=== PATIENT | female | born 1960 | race Two or more races ===

== ENCOUNTER 2017-05-26 10:32 | Emergency (ER) | payer OTHER ==
[2017-05-26] MEDS ORDERED: ONDANSETRON 4 MG/2 ML VIAL IVPB ONE (10:52)
[2017-05-26] MEDS ORDERED: SODIUM CHLORIDE 1,000 ML IV ONE (10:52)
--- NOTE | 2017-05-26 11:07 | PDOC ---
History of Present Illness - General History Source: Patient Exam Limitations: No Limitations - History of Present Illness Initial Comments: 05/26/17 14:28 Patient is a 57 year old female with a pmhx of ovarian ca( treated with hysterectomy and chemo in remission for 27 years) and migraines who presents to the ED s/p episode of vertigo. Patient states that she was sitting at the computer as the room spinning, lightheadedness, diaphoresis, nausea came on with a sudden onset that lasted for 20 minutes and resolved gradually when she lied down. She has felt fine afterwards and has not been dizzy since. Patient reports having intermittent episodes dizzy spells, lightheadedness, and migranes for over the past 6 weeks. She denies any alleviating or exacerbating factors. She denies no fall, head trauma or LOC. She notes that she just waited for the episode to pass on its own while lying down. She reports slight dizziness and nausea while in the ED. She states that she has hx of difficulty sleeping. She denies any chest pain, SOB, palpitations or headache. She denies any double vision, blurry vision, slurring or dysarthria or hearing problems. She denies any recent travel or sick contact. <Amisha Murillo - Last Filed: 05/26/17 14:28> <Pedor Guzman - Last Filed: 05/26/17 15:10> - General Chief Complaint: Lightheaded Stated Complaint: DIZZINESS Time Seen by Provider: 05/26/17 10:43 Past History <Amisha Murillo - Last Filed: 05/26/17 14:28> - Psycho/Social/Smoking Cessation Hx Suicidal Ideation: No Smoking History: Never smoked Hx Alcohol Use: No Drug/Substance Use Hx: No <Pedro Guzman - Last Filed: 05/26/17 15:10> - Past Medical History Allergies/Adverse Reactions: Allergies Allergy/AdvReac Type Severity Reaction Status Date / Time codeine AdvReac Severe Nausea Verified 05/26/17 10:43 Sulfa (Sulfonamide AdvReac Severe Nausea Verified 05/26/17 10:43 Antibiotics) Home Medications: Ambulatory Orders Meclizine HCl [Antivert -] 25 mg PO TID PRN #20 tablet 05/26/17 Ondansetron [Zofran -] 4 mg PO TID PRN #14 tablet 05/26/17 Review of Systems - Review of Systems Able to Perform ROS?: Yes Comments:: 05/26/17 14:29 CONSTITUTIONAL: Reported: diaphoresis. No reported: Fever, Chills, Generalized Weakness, Malaise, Loss of Appetite HEENT: No reported: Rhinorrhea, Nasal Congestion, Throat Pain, Throat Swelling, Difficulty Swallowing, Mouth Swelling, Ear Pain, Eye Pain, Visual Changes CARDIOVASCULAR: No reported: Chest Pain, Syncope, Palpitations, Irregular Heart Rate, Lightheadedness, Peripheral Edema RESPIRATORY: No reported: Cough, Shortness of Breath, SOB with Exertion, Orthopnea, Wheezing , Stridor, Hemoptysis GASTROINTESTINAL: No reported: Abdominal pain, Abdominal Distension, Nausea, Vomiting, Diarrhea, Constipation, Melena, Hematochezia GENITOURINARY: No reported: Dysuria, Frequency, Urgency, Hesitancy, Flank Pain, Genital Pain MUSCULOSKELETAL: No reported: Myalgia, Arthralgia, Joint Swelling, Back pain, Neck Pain SKIN: No reported: Rash, Itching, Pallor HEMEATOLOGIC/IMMUNOLOGIC: No reported: Easy Bleeding, Easy Bruising, Lymphadenopathy, Frequent infections ENDOCRINE: No reported: Unexplained Weight Gain, Unexplained Weight Loss, Heat Intolerance , Cold Intolerance NEUROLOGIC: Reported: vertigo, lightheadedness. No reported: Headache, Focal Weakness, Paresthesias, Unsteady Gait, Seizure, Mental Status Changes, Incontinence PSYCHIATRIC: No reported: Anxiety, Depression <Amisha Murillo - Last Filed: 05/26/17 14:28> *Physical Exam - Vital Signs Last Vital Signs Temp Pulse Resp BP Pulse Ox 97.1 F L 55 L 18 155/80 100 05/26/17 10:43 05/26/17 13:29 05/26/17 13:29 05/26/17 13:29 05/26/17 13:29 - Physical Exam Comments: 05/26/17 14:29 GENERAL: The patient is awake, alert, and fully oriented, Nontoxic - in no acute distress. HEAD: Normocephalic, atraumatic. EYES: extraocular movements intact, sclera anicteric, conjunctiva clear.No nystagumus noted ENT: Normal voice, Moist mucous membranes. TMs normal b/l NECK: Normal range of motion, supple LUNGS: Breath sounds equal, clear to auscultation bilaterally. No wheezes, no rhonchi, no rales. HEART: Regular rate and rhythm, without murmur, rub or gallop. ABDOMEN: Soft, nontender, normoactive bowel sounds. No guarding, no rebound.No CVA tenderness EXTREMITIES: Normal range of motion, no edema. No clubbing or cyanosis. No cords , erythema, or tenderness. NEUROLOGICAL: Mental status: The patient is oriented x3. Cranial nerves: Cranial nerves II through XII are intact Motor: The upper extremities are 5 over 5 in all muscle groups. The lower extremities are 5 over 5 in all muscle groups. No pronator drift. Sensation: Sensation is intact to light touch throughout. Neg romberg Cerebellar: [id number]-[id number]-[id number] is normal in both upper extremities. Heel-knee- forrester is normal in both lower extremities. Reflexes: 2+ and symmetric in the upper and lower extremities. Gait: Normal. Heel and toe walking are normal. Tandem gait is normal. PSYCH: Normal mood, normal affect. SKIN: Warm, Dry, normal turgor <Amisha Murillo - Last Filed: 05/26/17 14:28> - Vital Signs Last Vital Signs Temp Pulse Resp BP Pulse Ox 97.1 F L 53 L 18 149/86 100 05/26/17 10:43 05/26/17 10:43 05/26/17 10:43 05/26/17 10:43 05/26/17 10:43 <Pedro Guzman - Last Filed: 05/26/17 15:10> Heart Score/ECG Review - ECG Impressions Comment:: 05/26/17 15:10 Twelve-lead EKG was performed and reviewed by me. There is normal sinus rhythm with a heart rate of 47 Left anterior fascicular block There are no ST or T wave abnormalities. Impression: Sinus bradycardia <Pedro Guzman - Last Filed: 05/26/17 15:10> ED Treatment Course - LABORATORY CBC & Chemistry Diagram: 05/26/17 11:11 05/26/17 11:11 - ADDITIONAL ORDERS Additional order review: Laboratory Results 05/26/17 05/26/17 05/26/17 11:17 11:11 11:11 Sodium 142 Potassium 4.2 Chloride 104 Carbon Dioxide 33 H Anion Gap 5 L BUN 20 H Creatinine 0.6 Creat Clearance w eGFR > 60 Random Glucose 99 Calcium 10.0 Magnesium 2.0 Total Bilirubin 0.5 AST 27 ALT 30 Alkaline Phosphatase 55 Total Protein 7.0 Albumin 3.7 Urine Color Straw Urine Appearance Clear Urine pH 8.0 Urine Protein Negative Urine Glucose (UA) Negative Urine Ketones Negative Urine Blood Negative Urine Nitrite Negative Urine Bilirubin Negative Urine Urobilinogen Negative Ur Leukocyte Esterase Negative 05/26/17 11:11 RBC 4.43 MCV 87.7 MCHC 33.8 RDW 14.0 MPV 8.2 Neutrophils % 57.4 Lymphocytes % 32.4 Monocytes % 5.4 Eosinophils % 4.0 Basophils % 0.8 - Medications Given in the ED: ED Medications Discontinued Medications Generic Name Dose Route Start Last Admin Trade Name Freq PRN Reason Stop Dose Admin Sodium Chloride 1,000 mls @ 1,000 mls/hr 05/26/17 10:52 05/26/17 11:16 Normal Saline - IV 05/26/17 11:51 1,000 mls/hr .Q1H ONE Administration Ondansetron HCl 4 mg 05/26/17 10:52 05/26/17 11:16 Zofran Injection IVPB 05/26/17 10:53 4 mg ONCE ONE Administration <Amisha Murillo - Last Filed: 05/26/17 14:28> - LABORATORY CBC & Chemistry Diagram: 05/26/17 11:11 05/26/17 11:11 <Pedro Guzman - Last Filed: 05/26/17 15:10> Medical Decision Making - Medical Decision Making 05/26/17 11:43 57y F presents with sudden onset of vertigo at while working on her computer, lasting for approximately 20 minutes and then gradually resolved associated with diaphoresis and nausea w/o associated headache, neck pain, back pain, cp, palpitationsr ecnet uri. pt currently asypmtomatic without dizziness with normal physical exam 05/26/17 11:48 05/26/17 12:[address] head do not think that central cause of vertigo is likely based on normal exam will defer CT for now. 05/26/17 13:18 pt feeling improved asymptomatic will dc with pmd and ENT fu meclizine and zofranf or syptomatic relief return precautions were discussed I discussed the physical exam findings, ancillary test results and final diagnoses with the patient. I answered all of the patient's questions. The patient was satisfied with the care received and felt comfortable with the discharge plan and treatment plan. The patient will call their primary care physician within 24 hours to arrange follow-up and will return to the Emergency Department with any new, persistent or worsening symptoms. <Pedro Guzman - Last Filed: 05/26/17 15:10> *DC/Admit/Observation/Transfer - Attestations Scribe Attestion: 05/26/17 14:29 Documentation prepared by [employer], acting as medical records specialist for Pedro Guzman MD. <Amisha Murillo - Last Filed: 05/26/17 14:28> - Discharge Dispostion Admit: No <Pedro Guzman - Last Filed: 05/26/17 15:10> Diagnosis at time of Disposition: Vertigo, peripheral Qualifiers: Laterality: unspecified laterality Qualified Code(s): H81.399 - Other peripheral vertigo, unspecified ear - Discharge Dispostion Disposition: HOME Condition at time of disposition: Improved - Prescriptions Prescriptions: Meclizine HCl [Antivert -] 25 mg PO TID PRN #20 tablet PRN Reason: Vertigo Ondansetron [Zofran -] 4 mg PO TID PRN #14 tablet PRN Reason: Nausea - Referrals Referrals: Homar David DO [Staff Physician] - - Patient Instructions Printed Discharge Instructions: DI for Vertigo, DI for Benign Paroxysmal Positional Vertigo Additional Instructions: Return to the emergency department immediately with ANY new, persistent or worsening symptoms. TAke the meclizine for the next 2-3 days, if vertigo persists, continue using it. See a neurologist doctor for further evaluation. You MUST call and follow up with your doctor tomorrow for further evaluation of your symptoms. Results were discussed with you. Please make sure your doctor reviews the results of your emergency evaluation. Print Language: GERMAN
[2017-05-26 11:13] VITALS: TEMP 97.1; BMI 20.5
[2017-05-26] MEDS ORDERED: ONDANSETRON 4 MG/2 ML VIAL ONE (11:14)
[2017-05-26 11:22] LABS: BASOPHIL 0.8 % (0-2.0); MCH 29.6 pg (25.7-33.7); MCHC 33.8 g/dl (32.0-36.0); MEAN CELL VOLUME 87.7 fl (80-96); MEAN PLT VOLUME 8.2 fl (7.5-11.1); NEUTROPHILS 57.4 % (42.8-82.8); PLATELET COUNT 211 K/MM3 (134-434); WHITE BLOOD COUNT 4.4 K/mm3 (4.0-10.0)
[2017-05-26 11:47] LABS: ALBUMIN 3.7 g/dl (3.4-5.0); ALK PHOS 55 U/L (45-117); BILIRUBIN,TOTAL 0.5 mg/dL (0.2-1.0); CO2 33 mmol/L (21-32); CREATININE 0.6 mg/dL (0.55-1.02); GLUCOSE,RANDOM 99 mg/dL (74-106); SGOT/AST 27 U/L (15-37); SGPT/ALT 30 U/L (12-78)
[2017-05-26 11:56] LABS: URINE APPEARANCE CLEAR; URINE BILIRUBIN NEGATIVE (NEGATIVE); URINE BLOOD NEGATIVE (NEGATIVE); URINE COLOR STRAW; URINE GLUCOSE (UA) NEGATIVE (NEGATIVE); URINE KETONE NEGATIVE (NEGATIVE); URINE LEUK ESTERASE NEGATIVE (NEGATIVE); URINE NITRITE NEGATIVE (NEGATIVE); URINE PROTEIN NEGATIVE (NEGATIVE); URINE UROBILINOGEN NEGATIVE E.U./dl (0.2-1.0)
[2017-05-26 12:16] LABS: ANION GAP 5 (8-16)
[2017-05-26 13:29] VITALS: BP 155/80; PULSE 55
--- NOTE | 2017-05-26 14:59 | EKG ---
Test Reason : Blood Pressure : / mmHG Vent. Rate : 047 BPM Atrial Rate : 047 BPM P-R Int : 154 ms QRS Dur : 106 ms QT Int : 472 ms P-R-T Axes : 075 -48 031 degrees QTc Int : 417 ms SINUS BRADYCARDIA LEFT ANTERIOR FASCICULAR BLOCK ABNORMAL ECG WHEN COMPARED WITH ECG OF 29-MAY-2009 11:44, LEFT ANTERIOR FASCICULAR BLOCK IS NOW PRESENT Confirmed by ALETHEA QUEEN MD ([id number]) on 05/26/2017 2:59:06 PM Referred By: Confirmed By:ALETHEA QUEEN MD
== END 2017-05-26 13:30 | disposition home or self-care (01) ==
LOC: JER 10:32
PROC: 3E033GC Introduction of Other Therapeutic Substance into Peripheral Vein, Percutaneous Approach (ICD-10-PCS; principal; 2017-05-26)
PROC: 3E0337Z Introduction of Electrolytic and Water Balance Substance into Peripheral Vein, Percutaneous Approach (ICD-10-PCS; 2017-05-26)
DX: H81.399 Other peripheral vertigo, unspecified ear (principal); Z85.43 Personal history of malignant neoplasm of ovary
CPT/HCPCS: 36415; 80053; 81003; 83735; 85025; 93005; 93010; 99283-25

== ENCOUNTER 2023-05-25 06:20 | Day surgery (SDC) | payer OTHER ==
[2023-05-24 10:18] VITALS: BMI 20.2
[2023-05-25 06:40] VITALS: RESP 16
[2023-05-25] MEDS ORDERED: LIDOCAINE HCL 2% (20ML MULTI-DOSE VIAL) ONE (07:13)
[2023-05-25] MEDS ORDERED: MIDAZOLAM HCL 2 MG/2 ML SINGLE DOSE VIAL ONE (07:15)
[2023-05-25] MEDS ORDERED: PROPOFOL 60 ML ONE (07:15)
[2023-05-25] MEDS ORDERED: SUCCINYLCHOLINE CHLORIDE 200 MG/10 ML SYRINGE ONE (07:16)
[2023-05-25] MEDS ORDERED: DEXAMETHASONE SOD PHOSPHATE 4 MG/1 ML VIAL ONE (07:16)
[2023-05-25] MEDS ORDERED: KETOROLAC TROMETHAMINE 30 MG/1 ML VIAL ONE (07:16)
[2023-05-25] MEDS ORDERED: LIDOCAINE HCL/PF 2% SDV 5ML VIAL ONE (07:16)
[2023-05-25] MEDS ORDERED: ONDANSETRON 4 MG/2 ML VIAL ONE (07:16)
[2023-05-25] MEDS ORDERED: PHENYLEPHRINE HCL 10 MG/1 ML SINGLE DOSE VIAL ONE (07:16)
[2023-05-25 08:23] VITALS: TEMP 97.8
[2023-05-25 08:33] VITALS: BP 115/69; PULSE 58
== END 2023-05-25 08:33 | disposition home or self-care (01) ==
LOC: FASU 06:20
PROVIDERS: ATTEND Orthopaedic Surgery Hand Surgery
PROC: 0LN80ZZ Release Left Hand Tendon, Open Approach (ICD-10-PCS; principal; 2023-05-25 07:56)
DX: M65.332 Trigger finger, left middle finger (principal)